=== PATIENT | female | born 2000 ===

== ENCOUNTER 2018-06-18 23:48 | Emergency (ER) | payer OTHER ==
[2018-06-19 00:11] VITALS: BP 123/77; PULSE 97; RESP 17; TEMP 98.8; O2SAT 99
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
== END 2018-06-19 01:13 | disposition home or self-care (01) ==
LOC: ED 23:48
DX: S93.402A Sprain of unspecified ligament of left ankle, initial encounter (principal); V49.9XXA Car occupant (driver) (passenger) injured in unspecified traffic accident, initial encounter